=== PATIENT | male | born 1965 | race Caucasian/White ===

== ENCOUNTER 2017-07-26 12:01 | Emergency (ER) | payer OTHER ==
[2017-07-26 12:06] VITALS: BP 124/83; PULSE 78; RESP 18; TEMP 98.1; O2SAT 96
--- NOTE | 2017-07-26 12:56 | EDPHY ---
General Narrative: CHIEF COMPLAINT: Left foot pain HISTORY OF PRESENT ILLNESS: Patient complains of pain in the left midfoot. This started on Friday. This was after resuming exercise an exercise regimen of Unirisx. He has been using this for few days when he noticed pain in the left lateral midfoot. No inversion injury. No trauma or falls. Pain is [id number]. Worse on weight-bearing. Does not radiate. No numbness or tingling. No redness, swelling or warmth of the foot or calf. No other associated complaints or modifying factors. ESTABLISHED ORTHOPEDIST: Dr. Sanchez and Dr. Downey REVIEW OF SYSTEMS: Ten systems reviewed and are negative unless otherwise noted in the HPI PAST MEDICAL HISTORY: Hypertension, osteoarthritis PAST SURGICAL HISTORY: Hip surgery SOCIAL HISTORY: Nonsmoker. FAMILY HISTORY: Noncontributory EXAMINATION General Appearance: Alert, no distress Cardiovascular: Symmetric DP pulses 2+. Symmetric PT pulses 2+. Neurological: Strength is symmetric in lower extremities. Sensation symmetric to the dorsum of the feet. Skin: Warm and dry, no rash. No petechiae or purpura. No cellulitis or fluctuance. Extremities: No tenderness to palpation of the calves. No pain with passive dorsiflexion of the left ankle. Tenderness to palpation at the base of the left 5th metatarsal. Range of motion of the ankles intact. Bunion appearance to the left 1st MTP. Psychiatric: Mood and affect normal DIFFERENTIAL DIAGNOSES: Including but not limited to sprain, strain, fracture, dislocation, subluxation MDM: 12:35 p.m. Acute sprain injury to the left foot suspected. Neurovascular intact. X-rays pending. Resting comfortably in no acute distress. 12:51 p.m. X-ray has been read by radiologist as negative for fracture dislocation. There is hallux valgus and bunion deformity at the 1st MTP joint. I re-evaluated the patient. I have considered stress fracture, sprain, strain. He arrives with his own Lerna boot and I do feel this is reasonable level of care for him. Additional provide crutches she have any pain with ambulation. Short course of pain medication provided by prescription. Recommend he follow up with Orthopedics for definitive care. Patient's spouse are comfortable with this plan. ED precautions discussed. He is discharged home stable condition, neurovascular intact SUPERVISION: This patient was independently evaluated without direct involvement of or examination by the attending physician. ED Precautions: Worsening pain. Erythema, edema, cyanosis, pallor, paresthesia or anesthesia. - Diagnostics Imaging Results: Imaging Impressions Foot X-Ray 07/26/17 12:11 Impression: No evidence for acute fracture. Hallux valgus and bunion deformity first metatarsophalangeal joint with mild degenerative change. - History Smoking Status: Never smoked - Objective Vital Signs: Initial Vital Signs Temperature (C) 98.1 F 07/26/17 12:04 Heart Rate 78 07/26/17 12:04 Respiratory Rate 18 07/26/17 12:04 Blood Pressure 124/83 H 07/26/17 12:04 O2 Sat (%) 96 07/26/17 12:04 O2 Delivery Mode Room Air Allergies/Adverse Reactions: rofecoxib [From Vioxx] Allergy (Severe, Verified 07/26/17 12:03) SYNCOPE Home Medications: Medication Instructions Recorded Lisinopril [Zestril] 10 mg PO DAILY 08/16/15 oxyCODONE HCL/ACETAMINOPHEN 1 each PO Q4-6PRN PRN #7 tablet 07/26/17 [Percocet 5-325 mg Tablet] Departure - Departure Disposition: Home, Routine, Self-Care Clinical Impression: Bunion of great toe of left foot Sprain of foot, left Qualifiers: Encounter type: initial encounter Qualified Code(s): S93.602A - Unspecified sprain of left foot, initial encounter Condition: Good Instructions: Foot Sprain (ED) Additional Instructions: 1. Medication as prescribed as needed for pain 2. Continue [id number] anti-inflammatories as needed 3. Weightbearing as tolerated with assistive device 4. Contact Orthopedics for definitive care Referrals: Joseph Pierce MD [Primary Care Provider] - As per Instructions Rogelio Christopher MD [Medical Doctor] - As per Instructions Albino Hoff MD [Medical Doctor] - As per Instructions Prescriptions: oxyCODONE HCL/ACETAMINOPHEN [Percocet 5-325 mg Tablet] 1 each PO Q4-6PRN PRN #7 tablet PRN Reason: Pain, Breakthrough
== END 2017-07-26 14:13 | disposition home or self-care (01) ==
DX: S93.602A Unspecified sprain of left foot, initial encounter (principal); M21.612 Bunion of left foot; I10 Essential (primary) hypertension; X58.XXXA Exposure to other specified factors, initial encounter; Y99.8 Other external cause status; Y93.B1 Activity, exercise machines primarily for muscle strengthening